=== PATIENT | female | born 1945 ===

== ENCOUNTER 2023-07-10 12:43 | Outpatient (CLI) | payer MEDICARE, SELFPAY ==
--- NOTE | ~2023-07-10 | XR_ITS ---
Right Shoulder Technique: AP and scapular Y views were obtained. Clinical History: Pain Findings: No fracture or dislocation is seen. Suture anchor noted at the humeral head. Probable prior subacromial decompression. Osseous alignment is anatomic. The glenohumeral and acromioclavicular nahum nt spaces are preserved. Soft tissues are unremarkable. Impression: No acute fracture or dislocation. Suture anchor at the right humeral head. Reviewed, dictated and finalized at location . Impression: No acute fracture or dislocation. Suture anchor at the right humeral head.
--- NOTE | ~2023-07-10 | XR_ITS ---
Left Shoulder Technique: AP and scapular Y views were obtained. Clinical History: Pain Findings: No fracture or dislocation is seen. Humeral head is mildly high riding. The glenohumeral an d acromioclavicular joint spaces are preserved. Soft tissues are unremarkable. Impression: Somewhat high riding humeral head. Consider underlying rotator cuff tear. No fracture or dislocation. Reviewed, dictated and finalized at location . Impression: Somewhat high riding humeral head. Consider underlying rotator cuff tear. No fracture or dislocation.
== END 2023-07-10 12:44 | disposition home or self-care (01) ==
PROVIDERS: PCP Family Medicine; Visit Provider Orthopaedic Surgery
DX: M25.511 Pain in right shoulder (principal); M25.562 Pain in left knee; M25.512 Pain in left shoulder
CPT/HCPCS: 73030; 73564